=== PATIENT | female | born 1965 | race Caucasian/White ===

== ENCOUNTER 2018-06-30 02:11 | Emergency (ER) | payer OTHER ==
[~2018-06-30] VITALS: Ht 177.8 cm; Wt 113.4 kg
[2018-06-30 02:17] VITALS: Ht 177.8 cm; Wt 113.4 kg
[2018-06-30 03:22] LABS: RED CELL DISTRIBUTION WIDTH 14.3 % (11.5-14.5)
[2018-06-30 03:24] LABS: PLATELET COUNT 544 x10^3mcL (130-400)
[2018-06-30 03:36] LABS: BAND NEUTROPHIL 4 % (0-10); BASOPHIL 0 % (0-2); MONOCYTE 5 % (0-7); SEGMENTED NEUTROPHILS 76 % (37-75)
[2018-06-30 03:37] LABS: rbc morphology (normal/abnorm) ABNORMAL (NORMAL)
[2018-06-30 03:39] LABS: CALCIUM 8.5 mg/dL (8.5-10.1); CARBON DIOXIDE 28.8 mmol/L (21-32); CREATININE SERUM 1.5 mg/dL (0.6-1.0); POTASSIUM SERUM 3.6 mmol/L (3.5-5.1)
[2018-06-30 03:44] LABS: ALBUMIN 3.6 g/dL (3.4-5.0); BILIRUBIN TOTAL 0.45 mg/dL (0.20-1.00)
[2018-06-30 04:51] LABS: microscopic required? YES; urine erythrocyte NEGATIVE (NEGATIVE)
[2018-06-30 09:13] VITALS: BP 146/58
== END 2018-06-30 09:13 | disposition short-term general hospital (02) ==
LOC: ED 02:11
PROVIDERS: Emergency Medicine
DX: T81.43XA Infection following a procedure, organ and space surgical site, initial encounter (principal); E11.22 Type 2 diabetes mellitus with diabetic chronic kidney disease; I12.9 Hypertensive chronic kidney disease with stage 1 through stage 4 chronic kidney disease, or unspecified chronic kidney disease; N18.9 Chronic kidney disease, unspecified; E03.9 Hypothyroidism, unspecified
CPT/HCPCS: 82962; 83880; J2270; J2405; J2543; J3010; J3490; J7030; Q9967